=== PATIENT | male | born 1970 | race Caucasian/White ===

== ENCOUNTER 2019-04-25 00:06 | Emergency (ER) | payer SELFPAY ==
[~2019-04-25] VITALS: Ht 182.9 cm; Wt 87.3 kg
[2019-04-25 00:23] VITALS: Ht 182.9 cm; Wt 87.3 kg
[2019-04-25 01:13] VITALS: BP 125/90
== END 2019-04-25 01:13 | disposition home or self-care (01) ==
LOC: ED 00:06
DX: M54.5 Low back pain (principal); R30.0 Dysuria
CPT/HCPCS: J1885